=== PATIENT | male | born 2000 | race Two or more races ===

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

== ENCOUNTER 2019-03-21 23:19 | Emergency (ER) | payer OTHER ==
[2019-03-21 23:31] VITALS: BP 119/59; PULSE 55; TEMP 98.1; BMI 26.6
[2019-03-21 23:54] LABS: EPI CELLS 0 /HPF (0-5/HPF); HYALINE CASTS 4 /lpf (0-8); PH,URINE 5.5 (5.0-8.0); URINE APPEARANCE CLEAR; URINE BACTERIA 18.6 /hpf (NEGATIVE); URINE BILIRUBIN NEGATIVE (NEGATIVE); URINE COLOR YELLOW; URINE GLUCOSE (UA) NEGATIVE (NEGATIVE); URINE KETONE 2+ (NEGATIVE); URINE LEUK ESTERASE 2+ (NEGATIVE); URINE NITRITE NEGATIVE (NEGATIVE); URINE PROTEIN NEGATIVE (NEGATIVE); URINE RBC 1 /hpf (0-4); URINE UROBILINOGEN 0.2 mg/dL (0.2-1.0); URINE WBC 83 /hpf (0-5)
--- NOTE | 2019-03-21 23:58 | PDOC ---
History of Present Illness - General Chief Complaint: Penile Drainage Stated Complaint: PENILE DISCHARGE Time Seen by Provider: 03/21/19 23:55 - History of Present Illness Initial Comments: 03/21/19 23:56 18 yo M with no significant pmh who p/w urethral discharge, and dysuria x 1 day. Patient reports 1 day of white urethral discharge, and dysuria. Denies similar symptoms in past. No other complaints. Sexually active with one male partner, with absent barrier protection. Patient denies ADAMS, vision change, palpitations, cough, wheezing, orthopena, PND , leg swelling/pain, N/V, F,C, CP, SOB, urinary complaints, hematuria, BPR, abdominal pain, diarrhea, constipation, lightheadedness, weakness, sensory changes. PMHx: as noted above ROS: as noted SHx: Denies Etoh, IVDA, tobacco use Allergies: NKDA Past History - Past Medical History Allergies/Adverse Reactions: Allergies Allergy/AdvReac Type Severity Reaction Status Date / Time No Known Allergies Allergy Verified 01/01/17 13:17 Home Medications: Ambulatory Orders NK [No Known Home Medication] 01/01/17 - Suicide/Smoking/Psychosocial Hx Smoking History: Never smoked Hx Alcohol Use: No Drug/Substance Use Hx: No Substance Use Type: Alcohol, Marijuana Review of Systems - Review of Systems Comments:: 03/21/19 23:56 GENERAL/CONSTITUTIONAL: No fever or chills. No weakness. HEAD, EYES, EARS, NOSE AND THROAT: No change in vision. No ear pain or discharge. No sore throat. CARDIOVASCULAR: No chest pain or shortness of breath RESPIRATORY: No cough, wheezing, or hemoptysis. GASTROINTESTINAL: No nausea, vomiting, diarrhea or constipation. GENITOURINARY: + Penile discharge. No dysuria, frequency, or change in urination. MUSCULOSKELETAL: No joint or muscle swelling or pain. No neck or back pain. SKIN: No rash NEUROLOGIC: No headache, vertigo, loss of consciousness, or change in strength/ sensation. ENDOCRINE: No increased thirst. No abnormal weight change HEMATOLOGIC/LYMPHATIC: No anemia, easy bleeding, or history of blood clots. ALLERGIC/IMMUNOLOGIC: No hives or skin allergy. *Physical Exam - Vital Signs Last Vital Signs Temp Pulse Resp BP Pulse Ox 98.1 F 55 L 20 119/59 L 98 03/21/19 23:28 03/21/19 23:28 03/21/19 23:28 03/21/19 23:28 03/21/19 23:28 - Physical Exam Comments: 03/21/19 23:57 GENERAL: Awake, alert, and fully oriented, in no acute distress HEAD: No signs of trauma, normocephalic, atraumatic EYES: PERRLA, EOMI, sclera anicteric, conjunctiva clear ENT: Hearing grossly normal, nares patent, oropharynx clear without exudates. Moist mucosa NECK: Normal ROM, supple, no lymphadenopathy, JVD, or masses LUNGS: No distress, speaks full sentences, clear to auscultation bilaterally HEART: Regular rate and rhythm, normal S1 and S2, no murmurs, rubs or gallops, peripheral pulses normal and equal bilaterally. ABDOMEN: Soft, nontender, normoactive bowel sounds. No guarding, no rebound. No masses GENITOURINARY: + White, penile discharge from urethral meatus. Absent scrotal skin change, lesions, or testicular ttp. Absent penile lesions. Absent inguinal lymphadenopathy or bulge. Absent perineum skin change. EXTREMITIES : Normal inspection, Normal range of motion, no edema. No clubbing or cyanosis. NEUROLOGICAL: Cranial nerves II through XII grossly intact. Normal speech, normal gait, no focal sensorimotor deficits SKIN: Warm, Dry, normal turgor, no rashes or lesions noted ED Treatment Course - ADDITIONAL ORDERS Additional order review: Laboratory Results 03/21/19 23:35 Urine Color Yellow Urine Appearance Clear Urine pH 5.5 Ur Specific [place] 1.022 Urine Protein Negative Urine Glucose (UA) Negative Urine Ketones 2+ H Urine Blood Negative Urine Nitrite Negative Urine Bilirubin Negative Urine Urobilinogen 0.2 Ur Leukocyte Esterase 2+ H Urine WBC (Auto) 83 Urine RBC (Auto) 1 Urine Casts (Auto) 4 U Epithel Cells (Auto) 0 Urine Bacteria (Auto) 18.6 Medical Decision Making - Medical Decision Making 03/22/19 00:29 18 yo M with no significant pmh who p/w urethral discharge, and dysuria x 1 day. Vitals wnl, AF, A&Ox3. Physical exam notable for white urethral discharge, otherwise unremarkable. Patient likely with gonorrhea/chlamydia infection. Will consider cystitis, nephrolithaisis, testicular pathology. Will treat empirically for G/C, and provide analgesic control, and reassess. 03/22/19 00:31 ED Course: 03/22/19 01:25 Laboratory Tests 03/21/19 23:35 Urine Color Yellow Urine Appearance Clear Urine Ketones 2+ H Ur Leukocyte Esterase 2+ H Urine WBC (Auto) 83 Urine RBC (Auto) 1 Rocephin 250 mg IM, Azithromycin 1000 mg PO Stable for d/c with return precautions *DC/Admit/Observation/Transfer Diagnosis at time of Disposition: Penile discharge - Referrals Referrals: ON STAFF,NOT [Primary Care Provider] - - Patient Instructions Printed Discharge Instructions: Facts About Sexually Transmitted Infections Additional Instructions: Please return to the emergency department with any new or worsening symptoms or concerns. Please follow up with your primary care physician within 72 hours. - Post Discharge Activity
[2019-03-22] MEDS ORDERED: AZITHROMYCIN 250 MG TABLET PO ONE ×2 (00:21→00:25)
[2019-03-22] MEDS ORDERED: AZITHROMYCIN 500 MG TABLET PO ONE (00:21)
[2019-03-22] MEDS ORDERED: IBUPROFEN 600 MG TABLET (FP) PO ONE ×2 (00:30→00:39)
[2019-03-22] MEDS ORDERED: AZITHROMYCIN 250 MG TABLET ONE (00:32)
[2019-03-22] MEDS ORDERED: cefTRIAXone SODIUM 1 GM VIAL ONE (00:32)
[2019-03-22] MEDS ORDERED: LIDOCAINE HCL 1%, 10 MG/ML (20ML VIAL) ONE (00:32)
--- NOTE | 2019-03-22 02:26 | PDOC ---
Documentation entered by Adalid Correia SCRIBE, acting as scribe for Lizy Rose MD. Lizy Rose MD: This documentation has been prepared by the Masood gallardo Xhesika, SCRIBE, under my direction and personally reviewed by me in its entirety. I confirm that the documentation accurately reflects all work, treatment, procedures, and medical decision making performed by me. Attending Attestation - Resident Resident Name: Oscar Villeda - ED Attending Attestation I have performed the following: I have examined & evaluated the patient, The case was reviewed & discussed with the resident, I agree w/resident's findings & plan - HPI HPI: 03/22/19 01:21 The patient is a 18 year old male with no significant medical history who present to the ED with 1 day of dysuria and urethral discharge. The patient states he is sexually active with one male partner without protection. The patient notes he has never experienced these symptoms before. The patient denies any urinary complaints. The patient denies leg swelling/pain, sensory changes, chest pain, shortness of breath, headache and dizziness. Denies fever, chills, nausea, vomit, diarrhea and constipation. Denies frequency, urgency and hematuria. Allergies: NKA - Physicial Exam PE: 03/22/19 01:22 GENERAL: Awake, alert, and fully oriented, in no acute distress HEAD: No signs of trauma EYES: PERRLA, EOMI, sclera anicteric, conjunctiva clear ENT: Auricles normal inspection, hearing grossly normal, nares patent, oropharynx clear without exudates. Moist mucosa NECK: Normal ROM, supple, no lymphadenopathy, JVD, or masses LUNGS: Breath sounds equal, clear to auscultation bilaterally. No wheezes, and no crackles HEART: Regular rate and rhythm, normal S1 and S2, no murmurs, rubs or gallops ABDOMEN: Soft, nontender, normoactive bowel sounds. No guarding, no rebound. No masses GENITOURINARY: (+) White penile discharge from urethral meatus. No rashes. EXTREMITIES: Normal range of motion, no edema. No clubbing or cyanosis. No cords, erythema, or tenderness NEUROLOGICAL: Cranial nerves II through XII grossly intact. Normal speech, normal gait SKIN: Warm, Dry, normal turgor, no rashes or lesions noted. - Medical Decision Making 03/22/19 05:03 Pt comes with STD and he will be treated.
== END 2019-03-22 01:27 | disposition home or self-care (01) ==
LOC: JER 23:19
DX: A64 Unspecified sexually transmitted disease (principal)
CPT/HCPCS: 36415; 81003; 87086; 87389; 87491; 87591; 96374; 99282-25